=== PATIENT | male | born 1990 | race Caucasian/White ===

== ENCOUNTER 2016-06-16 19:04 | Emergency (ER) | payer OTHER ==
[2016-06-16] MEDS ORDERED: ASPIRIN 81 MG TABLET, CHEWABLE PO ONE (19:49)
--- NOTE | 2016-06-16 19:49 | ER Document Report ---
ED Medical Screen (RME) - General Chief Complaint: Palpitations Stated Complaint: DIFFICULTY BREATHING/HEART PALPITATIONS Time seen by provider: 19:47 Mode of Arrival: Ambulatory Information source: Patient Notes: 26-year-old male presents to ED for help palpitations off and on for 2 weeks. States he came in today due to heart having flutters denies any chest pain. States he been short of breath today. I have greeted and performed a rapid initial assessment of this patient. A comprehensive ED assessment and evaluation of the patient, analysis of test results and completion of medical decision making process will be conducted by an additional ED providers. TRAVEL OUTSIDE OF THE [place] IN LAST 30 DAYS: No - Related Data Allergies/Adverse Reactions: No Known Allergies Allergy (Unverified 03/11/16 04:50) Past Medical History - Immunizations Hx Diphtheria, Pertussis, Tetanus Vaccination: Yes Physical Exam - Vital signs Vitals: Temp Pulse Resp BP Pulse Ox 98.0 F 85 16 125/70 99 06/16/16 19:33 06/16/16 19:33 06/16/16 19:33 06/16/16 19:33 06/16/16 19:33 Course - Vital Signs Vital signs: Temp Pulse Resp BP Pulse Ox 98.0 F 85 16 125/70 99 06/16/16 19:33 06/16/16 19:33 06/16/16 19:33 06/16/16 19:33 06/16/16 19:33
[2016-06-16 20:16] LABS: ABSOLUTE BASOPHILS # (AUTO) 0.1 10^3/uL (0.0-0.2); ABSOLUTE EOSINOPHILS # (AUTO) 0.1 10^3/uL (0.0-0.6); ABSOLUTE LYMPHOCYTES (AUTO) 1.9 10^3/uL (0.5-4.7); ABSOLUTE MONOCYTES (AUTO) 0.8 10^3/uL (0.1-1.4); ABSOLUTE NEUT (AUTO) 5.2 10^3/uL (1.7-8.2); BASOPHILS % (AUTO) 0.7 % (0-2); EOSINOPHILS % (AUTO) 0.8 % (0-6); HEMATOCRIT 47.4 % (37.9-51.0); HEMOGLOBIN 15.6 g/dL (13.5-17.0); HGB HCT DIFFERENCE -0.6; LYMPHOCYTES % (AUTO) 24.2 % (13-45); MEAN CORPUSCULAR HEMOGLOBIN 29.9 pg (27.0-33.4); MEAN CORPUSCULAR VOLUME 91 fl (80-97); MONOCYTES % (AUTO) 9.9 % (3-13); RED BLOOD COUNT 5.23 10^6/uL (4.35-5.55); RED CELL DISTRIBUTION WIDTH 14.6 % (11.5-14.0); SEGMENTED NEUTROPHILS % (AUTO) 64.4 % (42-78)
[2016-06-16 20:36] LABS: ALANINE AMINOTRANSFERASE 65 U/L (21-72); ALBUMIN 4.9 g/dL (3.5-5.0); ALKALINE PHOSPHATASE 48 U/L (38-126); ANION GAP 12 (5-19); ASPARTATE AMINO TRANSFERASE 35 U/L (17-59); BILIRUBIN,TOTAL 0.7 mg/dL (0.2-1.3); BLOOD UREA NITROGEN 20 mg/dL (7-20); CALCIUM 9.4 mg/dL (8.4-10.2); CARBON DIOXIDE 28 mmol/L (22-30); CHLORIDE 102 mmol/L (98-107); CREATINE KINASE 464 U/L (55-170); CREATININE RESULT 1.23 mg/dL (0.52-1.25); GLUCOSE 94 mg/dL (75-110); POTASSIUM 4.5 mmol/L (3.6-5.0); SODIUM 141.9 mmol/L (137-145); TOTAL PROTEIN 7.6 g/dL (6.3-8.2)
[2016-06-16 20:47] LABS: CREATINE KINASE MB 2.19 ng/mL (<4.55); TROPONIN I < 0.012 ng/mL
--- NOTE | 2016-06-16 22:25 | ER Document Report ---
ED General - General Chief Complaint: Palpitations Stated Complaint: DIFFICULTY BREATHING/HEART PALPITATIONS Mode of Arrival: Ambulatory Information source: Patient Notes: Patient presents to the emergency department for complaints of heart palpitations and shortness of breath for the past 2-1/2 weeks. Patient reports he started taking PCT V which helps decrease estrogen levels 3 weeks ago. Patient reports he's had the symptoms on and off since February. He denies chest pain. He denies other symptoms such as fever vomiting diarrhea. Patient reports he feels like his heart is racing at times. Denies past medical history. 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 Patient does admit to drinking caffeine. He reports he used to drink a lot of energy drinks Redbull but doesn't do that anymore. Patient reports he feels like he is dragging in the morning and he feels like he is tired all day long. Patient reports symptoms seem worse when he drinks alcohol. TRAVEL OUTSIDE OF THE [place] IN LAST 30 DAYS: No - HPI Onset: Other - 21/2 weeks Onset/Duration: Waxing and waning Quality of pain: No pain Severity: None Pain Level: Denies Associated symptoms: None Exacerbated by: Denies Relieved by: Denies Similar symptoms previously: Yes Recently seen / treated by doctor: No - Related Data Allergies/Adverse Reactions: No Known Allergies Allergy (Unverified 03/11/16 04:50) Past Medical History - General Information source: Patient - Social History Smoking Status: Never Smoker Cigarette use (# per day): No Frequency of alcohol use: Occasional Drug Abuse: None Occupation: personalized living assistant, [employer], loss/prevention Family History: CAD - father [employer] in his 40's, uncles with pacemaker Patient has suicidal ideation: No Patient has homicidal ideation: No - Medical History Medical History: Negative Renal/ Medical History: Denies: Hx Peritoneal Dialysis Surgical Hx: Negative - Immunizations Hx Diphtheria, Pertussis, Tetanus Vaccination: Yes Review of Systems - Review of Systems Notes: Review HPI for review of systems., All other systems negative Physical Exam - Vital signs Vitals: Temp Pulse Resp BP Pulse Ox 98.0 F 85 16 125/70 99 06/16/16 19:33 06/16/16 19:33 06/16/16 19:33 06/16/16 19:33 06/16/16 19:33 - Notes Notes: PHYSICAL EXAMINATION: GENERAL: Well-appearing, muscular and in no acute distress laughs easily HEAD: Atraumatic, normocephalic. EYES: Pupils equal round extraocular movements intact, sclera anicteric, conjunctiva are normal. ENT: TM wnl, nares patent, oropharynx clear without exudates. Moist mucous membranes. NECK: Normal range of motion, supple without lymphadenopathy LUNGS: CTAB and equal. No wheezes rales or rhonchi. no cough, speaks in clear full sentences HEART: Regular rate and rhythm without murmurs ABDOMEN: Soft, no tenderness. No guarding, no rebound BACK: No c/o pain EXTREMITIES: Normal range of motion, no pitting edema. NEUROLOGICAL: Cranial nerves grossly intact. Normal sensory/motor exams. PSYCH: Normal mood, normal affect. SKIN: Warm, Dry, normal turgor, hickies to both shoulders Course - Re-evaluation Re-evalutation: 06/16/16 22:25 CK elevated, patient denies muscular pain, reports he lifts weights 5 x a week. Patient also takes pre- workout which contains creatine Labs unremarkable, TSH normal. Patient looks good nontoxic no shortness of breath noted. 06/16/16 23:27 Patient was instructed on what was inside PCT V. He was instructed to avoid supplements for the next month in follow-up with a primary care provider for further evaluation. Whats Inside PCT V: Tribulus Terrestris: Tribulus Terrestris is an herb that supports the natural release of and production of Testosterone. Tribulus also supports the growth of lean mass, aids in muscle breakdown, and will help boost your libido. After your cycle your test levels will be depleted and Tribulus will help boost them back up! Arimistane: Arimistane aka Androst 3,5-dien-7,17-lydia is a suicide aromatase inhibitor which means it prevents estrogen conversion. Arimistane elevates your natural myotropic state, leading to increased muscle mass, faster recovery times , decreased fat storage, and a positive increase in your libido. Saw Foreman: Saw Foreman is the pinnacle of supplements when it comes to healthy prostate function. Additionally, Saw Foreman works to prevent the conversion of testosterone to DHT as well as prevents testosterone from being deactivated! You can't get enough of this stuff! Laxogenin: 5a-Hydroxy Laxogenin is a non hormonal natural anabolic that has an anabolic rating so high it would be illegal if it wasnt completely natural! It helps to increase your protein synthesis by 200% leading to increased muscle growth and accelerated recovery. Additionally, Laxogenin has been shown to help decrease the production of the anti-catabolic stress hormone cortisol. NAC (N-Acetylcysteine): NAC can help to prevent damage to the liver being a powerful antioxidant and cell detoxification co-factor, NAC works to eliminate your body of free radicals and heavy metals. Y-Vztnts-Ipcsbpjq is currently the dietary supplement of choice for building up cysteine or conserving the body's store of Glutathione, Cysteine and other Sulfhydryl antioxidant resources. This is very crucial for the body's life functions, as NAC helps the body neutralize toxins, heavy metals, such as mercury. How does laxogenin work? Laxogenin is often compared to oxandrolone since it is believed to have a similar anabolic/androgenic ratio.[2] You may know oxandrolone by its trade name , Anavar. Oxandrolone reduces Sex Hormone Binding Globulin (SHBG) hormones, which promote higher levels of free testosterone and increases nitrogen retention that will leads to anabolism. Oxandrolone has been shown to directly promote lipolysis by binding to androgen receptor,[3] reducing thyroid-binding globulin and enhanced utilization of triiodothyronine (T3). It also increases red blood cell count[4] resulting in an increase in muscular endurance. Heart[edit] T3 increases the heart rate and force of contraction, thus increasing cardiac output, by increasing -adrenergic receptor levels in myocardium.[10] This results in increased systolic blood pressure and decreased diastolic blood pressure. The latter two effects act to produce the typical bounding pulse seen in hyperthyroidism. It also upregulates the thick filament protein myosin, which helps to increase contractility. A helpful clinical measure to assess contractility is the time between the QRS complex and the second heart sound. This is often decreased in hyperthyroidism. - Vital Signs Vital signs: Temp Pulse Resp BP Pulse Ox 98.0 F 85 16 125/70 99 06/16/16 19:33 06/16/16 19:33 06/16/16 19:33 06/16/16 19:33 06/16/16 19:33 - Laboratory Result Diagrams: 06/16/16 20:00 06/16/16 20:00 Laboratory results interpreted by me: 06/16/16 06/16/16 20:00 20:00 RDW 14.6 H Creatine Kinase 464 H - Diagnostic Test Radiology reviewed: Image reviewed, Reports reviewed - neg - EKG Interpretation by Me EKG shows normal: Sinus rhythm Discharge - Discharge Clinical Impression: Heart palpitations, Shortness of breath, elevated blood pressure Condition: Stable Disposition: HOME, SELF-CARE Instructions: Palpitations (Irregular or Rapid Heartrate) ([facility]), Family Physicians / Practices Additional Instructions: *You have been evaluated for heart palpitations, shortness of breath *Monitor your blood pressure. Your blood pressure was elevated today. This may be because you were anxious, in pain or because you need medication. It is important to follow up with your primary care provider for full evaluation. *Avoid supplements for the next month- *Follow up with a primary care provider within one week for a full physical and referral to tax intern as indicated *Return to ED for worsening condition, changes, needs, concerns Forms: Elevated Blood Pressure
[2016-06-16 23:53] VITALS: BP 126/71
--- NOTE | 2016-06-17 14:58 | EKG REPORT ---
SEVERITY:- ABNORMAL ECG - SINUS RHYTHM RIGHT ATRIAL ABNORMALITY : Confirmed by: Mel Dudley MD 17-Jun-2016 14:57:16
== END 2016-06-16 23:53 | disposition home or self-care (01) ==
LOC: ER 19:04
DX: R00.2 Palpitations (principal); R06.02 Shortness of breath; R03.0 Elevated blood-pressure reading, without diagnosis of hypertension
CPT/HCPCS: 36415; 71020; 80053; 82550; 82553; 84443; 84484; 85025; 93005; 93010; 99285